=== PATIENT | female | born 1960 | race Two or more races ===

== ENCOUNTER 2023-08-20 18:49 | Emergency (ER) | payer OTHER ==
[~2023-08-20] VITALS: Ht 149.9 cm; Wt 47.6 kg
[2023-08-20] MEDS ORDERED: LEVOFLOXAC25 MG/1 ML IV (19:22)
[2023-08-20] MEDS ORDERED: ONDANSETRON HCL 2 MG/ML VIAL IV ONE (20:15)
[2023-08-20] MEDS ORDERED: MORPHINE SULFATE 2 MG/ML CARTRIDGE IV ONE (20:15)
[2023-08-20] MEDS ORDERED: FAMOTIDINE/PF 20 MG/2 ML VIAL IV ONE (20:15)
[2023-08-20] MEDS ORDERED: 0.9 % SODIUM CHLORIDE 500 ML IV SCH (20:15)
[2023-08-20 21:14] LABS: HEMATOCRIT 44.6 % (36.0-45.00); HEMOGLOBIN 15.1 g/dL (12.0-15.00); MEAN CELL VOLUME 84.2 fL (80.00-100.00); MEAN CORPUSCULAR HEMOGLOBIN 28.4 pg (27.00-32.0); MEAN CORPUSCULAR HGB CONC 33.8 g/dl (32.0-36.0); PLATELET COUNT 204 K/uL (150-450); RED CELL DISTRIBUTION WIDTH 13.7 % (11.5-14.5)
[2023-08-20 22:22] LABS: CALCIUM 10.3 mg/dL (8.5-10.1); CREATININE SERUM 0.84 mg/dL (0.55-1.02); GFR 68.93; POTASSIUM 3.76 mEq/L (3.5-5.1)
[2023-08-20] MEDS ORDERED: INTESTINEX680 M1 PO (23:45)
[2023-08-20] MEDS ORDERED: PEPCID AC20 MG PO (23:45)
[2023-08-20] MEDS ORDERED: NEXIUM 24HR20 MG PO (23:45)
== END 2023-08-21 00:17 | disposition home or self-care (01) ==
LOC: ER 18:50 → EDBD 19:11 → ER 19:11
PROVIDERS: General Practice
DX: R10.9 Unspecified abdominal pain (principal); R11.10 Vomiting, unspecified; K21.9 Gastro-esophageal reflux disease without esophagitis; M19.90 Unspecified osteoarthritis, unspecified site; Z85.89 Personal history of malignant neoplasm of other organs and systems